=== PATIENT | female | born 2000 | race Caucasian/White ===

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

== ENCOUNTER 2018-06-26 05:20 | Emergency (ER) | payer BC ==
[~2018-06-26] VITALS: Ht 160 cm; Wt 70.8 kg
[2018-06-26] MEDS ORDERED: NARCAN4 MG NS (06:26)
[2018-06-26 07:29] LABS: HEMOGLOBIN 13.4 G/DL (11.9-15.5); MCH 31.4 PG (29.0-34.0); MCHC 32.7 G/DL (30.0-36.0); PLATELET COUNT 294 K/uL (156-360); RBC DIS.WIDTH-CV 13.8 % (11.8-14.6); RBC DIS.WIDTH-SD 48.6 % (39-53); RED BLOOD COUNT 4.27 M/uL (3.80-5.20); WHITE BLOOD COUNT 15.1 K/uL (4.1-10.2)
[2018-06-26 07:33] LABS: QUANTITATIVE HCG < 4.0 MIU/ML
[2018-06-26 07:54] LABS: CHLORIDE 105 MEQ/L (99-109); POTASSIUM 3.8 MEQ/L (3.7-5.4); SODIUM 140 MEQ/L (136-147)
[2018-06-26 08:00] LABS: CREATININE 0.8 MG/DL (0.6-1.3); GFR ESTIMATE (CALCULATED) > 59 mL/min/; GLUCOSE 110 mg/dL (70-99); SERUM ETHYL ALCOHOL 56 mg/dL; UREA NITROGEN (BUN) 8 mg/dL (9-23)
[2018-06-26 10:28] VITALS: BP 117/66
== END 2018-06-26 10:32 | disposition left against medical advice (07) ==
LOC: EME → EDBD 05:20 → EME 05:20
PROVIDERS: Emergency Medicine
DX: T40.601A Poisoning by unspecified narcotics, accidental (unintentional), initial encounter (principal); I10 Essential (primary) hypertension; F17.200 Nicotine dependence, unspecified, uncomplicated; F90.9 Attention-deficit hyperactivity disorder, unspecified type; Z91.5 Personal history of self-harm; Z88.0 Allergy status to penicillin
CPT/HCPCS: 71045; 80048; 81003; 84702; 85027; 99281; 99285; G0480; J2310; J7030